=== PATIENT | female | born 1985 | race Caucasian/White ===

== ENCOUNTER 2016-08-03 23:06 | Emergency (ER) | payer OTHER ==
[2016-08-04 00:03] LABS: BASOPHIL 0.5 % (0-2); EOSINOPHIL 1.7 % (0-5); HGB 13.1 g/dl (12.5-16.0); LYMPHOCYTE 31.7 % (15-48); MCH 30.9 pg (25.0-31.0); MCHC 33.6 g/dL (32.0-36.0); MONOCYTE 7.9 % (0-12); MPV 11.8 fL (6.0-9.5); NEUTROPHIL 58.2 % (41-80); PLT 272 K/uL (150-400); RBC 4.24 M/uL (4.20-5.40); RDW 12.9 % (11.5-14.0); WBC 8.1 K/uL (4.0-10.5)
[2016-08-04 00:20] LABS: ALBUMIN 4.6 g/dL (3.5-5.0); BILIRUBIN - TOTAL 0.2 mg/dL (0.1-1.0); CREATININE 0.9 mg/dL (0.5-1.0); GLOBULIN (CALCULATION) 3.2 g/dL (2.2-4.2); POTASSIUM 3.8 mmol/L (3.5-5.1); TOTAL PROTEIN 7.8 g/dL (6.4-8.3)
== END 2016-08-04 01:46 | disposition home or self-care (01) ==
LOC: FER 23:06
PROVIDERS: Internal Medicine
DX: F41.9 Anxiety disorder, unspecified (principal); R55 Syncope and collapse; R07.89 Other chest pain; F32.9 Major depressive disorder, single episode, unspecified; E03.9 Hypothyroidism, unspecified; Z88.1 Allergy status to other antibiotic agents; Z88.4 Allergy status to anesthetic agent; Z88.6 Allergy status to analgesic agent; Z91.040 Latex allergy status; Z79.899 Other long term (current) drug therapy
CPT/HCPCS: 36415; 80053; 84443; 84484; 85025; 85379; 93005

== ENCOUNTER 2016-10-14 16:13 | Emergency (ER) | payer OTHER ==
[2016-10-14 17:13] LABS: BILIRUBIN NEGATIVE (NEGATIVE); BLOOD NEGATIVE Ery/uL (NEGATIVE); CLARITY CLEAR (CLEAR); COLOR YELLOW (YELLOW); GLUCOSE (U) NORMAL (NORMAL); KETONE (U) NEGATIVE (NEGATIVE); LEUKOCYTES NEGATIVE Leu/uL (NEGATIVE); NITRITE NEGATIVE (NEGATIVE); PROTEIN NEGATIVE (NEGATIVE); SPECIFIC GRAVITY 1.025 (1.001-1.030); UROBILINOGEN 0.2 mg/dL (0.2-1.0)
[2016-10-14 17:18] LABS: BASOPHIL 1.1 % (0-2); LYMPHOCYTE 32.3 % (15-48); MCH 31.1 pg (25.0-31.0); MCHC 34.1 g/dL (32.0-36.0); MCV 91.1 fL (78.0-100.0); MONOCYTE 8.3 % (0-12); MPV 11.8 fL (6.0-9.5); NEUTROPHIL 56.3 % (41-80); PLT 220 K/uL (150-400); RDW 13.3 % (11.5-14.0)
[2016-10-14 17:34] LABS: ALBUMIN 4.1 g/dL (3.5-5.0); BILIRUBIN - TOTAL 0.6 mg/dL (0.1-1.0); CREATININE 0.9 mg/dL (0.5-1.0); GLOBULIN (CALCULATION) 3.5 g/dL (2.2-4.2); POTASSIUM 3.8 mmol/L (3.5-5.1); TOTAL PROTEIN 7.6 g/dL (6.4-8.3)
== END 2016-10-14 21:00 | disposition home or self-care (01) ==
LOC: FER 16:13
PROVIDERS: Nurse Practitioner Family
DX: R10.84 Generalized abdominal pain (principal); K62.89 Other specified diseases of anus and rectum; Z88.0 Allergy status to penicillin; Z88.6 Allergy status to analgesic agent; Z88.8 Allergy status to other drugs, medicaments and biological substances
CPT/HCPCS: 36415; 80053; 81003; 82150; 83690; 85025; J2405; Q9967